=== PATIENT | female | born 1955 | race African-American/Black ===

== ENCOUNTER 2020-03-26 11:20 | Emergency (ER) | payer OTHER, BC ==
[2020-03-26 11:59] VITALS: BMI 40.3
[2020-03-26] MEDS ORDERED: ACETAMINOPHEN 1000 MG/100 ML VIAL (NON FORMULARY) IVPB ONE (12:11)
[2020-03-26] MEDS ORDERED: DEXAMETHASONE SOD PHOSPHATE 4 MG/1 ML VIAL IVPUSH ONE (12:18)
[2020-03-26] MEDS ORDERED: SODIUM CHLORIDE 0.9% 500 ML INFUS.BAG IV ONE (12:30)
[2020-03-26] MEDS ORDERED: DEXAMETHASONE SOD PHOSPHATE 10 MG/1 ML VIAL ONE (12:53)
[2020-03-26] MEDS ORDERED: ALBUTEROL SO4 2.5/IPRATROPIUM 0.5 INH SOL 3 ML VIAL.NEB. NEB ONE ×2 (13:12→13:24)
[2020-03-26 13:22] LABS: BASO % 0.3 % (0-2.0); EOS % 0.1 % (0-4.5); HEMATOCRIT 37.4 % (32.4-45.2); LYMPH % 14.9 % (8-40); MCH 25.8 pg (25.7-33.7); MEAN CELL VOLUME 80.4 fl (80-96); MEAN PLT VOLUME 11.7 fl (7.5-11.1); MONO % 5.4 % (3.8-10.2); NEUT % 79.3 % (42.8-82.8); PLATELET COUNT 172 K/MM3 (134-434); RBC 4.65 M/mm3 (3.60-5.2); RDW 13.4 % (11.6-15.6); WHITE BLOOD COUNT 9.7 K/mm3 (4.0-10.8)
[2020-03-26 13:24] LABS: INR 1.38 (0.82-1.09); PROTHROMBIN TIME (PATIENT) 15.1 SEC (10.2-13.0)
[2020-03-26 13:26] LABS: ALBUMIN 3.5 g/dl (3.4-5.0); BILIRUBIN,TOTAL 0.6 mg/dl (0.2-1); CALCIUM 8.5 mg/dl (8.5-10); CREATININE 1.6 mg/dl (0.55-1.3); MAGNESIUM 2.5 mg/dL (1.8-2.4); PHOSPHOROUS 2.7 mg/dl (2.5-4.9); POTASSIUM 4.3 mmol/L (3.5-5.1); TOT PROT 8.1 g/dl (6.4-8.2)
[2020-03-26 13:31] LABS: ACTIVATED PTT 20.2 SECONDS (25.2-36.5)
[2020-03-26 13:53] LABS: VENOUS BASE EXCESS -1.6 mmol/L (-2-2); VENOUS O2 SATURATION 53.9 % (70-80); VENOUS PCO2 46.6 mmHg (38-52); VENOUS PH 7.342 (7.310-7.410)
[2020-03-26 14:05] LABS: N-TERMINAL BNP 27.5 pg/ml (5-125)
[2020-03-26] MEDS ORDERED: AZITHROMYCIN IVPB 500 MG in DEXTROSE 5%-WATER - 250 ML IVPB ONE (14:44)
[2020-03-26] MEDS ORDERED: CEFTRIAXONE 1 GM in DEXTROSE 5%-WATER - 100 ML IVPB ONE (14:44)
[2020-03-26] MEDS ORDERED: AZITHROMYCIN 500 MG VIAL IVPB ONE (14:52)
[2020-03-26] MEDS ORDERED: cefTRIAXone SODIUM 1 GM VIAL ONE (14:53)
[2020-03-26] MEDS ORDERED: ALBUTEROL SO4 HFA INHALER IH PRN (17:00)
[2020-03-26] MEDS ORDERED: ENOXAPARIN NA (PORCINE) 40 MG/0.4 ML DISP.SYRIN SQ SCH (17:00)
[2020-03-26 17:32] LABS: EPITHELIAL CELLS FEW /hpf
[2020-03-26] MEDS ORDERED: ENOXAPARIN NA (PORCINE) 60 MG/0.6 ML DISP.SYRIN SQ ONE (18:15)
[2020-03-26 19:26] VITALS: BP 129/76; PULSE 112; TEMP 98.1
[2020-03-26] MEDS ORDERED: BUDESONIDE/FORMETEROL FUMARATE 80/4.5 mcg INHALER IH SCH (22:00)
[2020-03-26] MEDS ORDERED: HEPARIN NA (PORCINE) 5,000 UNITS/ML 1ML VIAL SQ SCH (22:00)
== END 2020-03-26 19:30 | disposition short-term general hospital (02) ==
LOC: FER 11:20
PROC: 3E0F7GC Introduction of Other Therapeutic Substance into Respiratory Tract, Via Natural or Artificial Opening (ICD-10-PCS; principal; 2020-03-26)
PROC: 3E033GC Introduction of Other Therapeutic Substance into Peripheral Vein, Percutaneous Approach (ICD-10-PCS; principal; 2020-03-26)
PROC: 3E023GC Introduction of Other Therapeutic Substance into Muscle, Percutaneous Approach (ICD-10-PCS; principal; 2020-03-26)
DX: U07.1 COVID-19 (principal)
CPT/HCPCS: 36415; 71045-TC-FY; 80053; 81003; 81015; 82728; 82803; 83605; 83615; 83735; 83880; 84100; 84484; 85025; 85379; 85610; 85730; 86140; 87040; 87086; 87186; 93005; 99285-25; C9803; J0131; U0003